=== PATIENT | female | born 1985 | race Two or more races ===

== ENCOUNTER 2016-12-30 13:27 | Emergency (ER) | payer MEDICAID ==
[~2016-12-30] VITALS: Ht 154.9 cm; Wt 86.2 kg
[~2016-12-30 13:27] MED LIST: ALBUTEROL2.5 MG/3 M INH; CEPHALEXIN500 MG ORAL; IBUPROFEN600 MG ORAL; TYLENOL650 MG/20. ORAL
--- NOTE | 2016-12-30 13:42 | Emergency Room Report ---
History of Present Illness General Chief Complaint: Upper Extremity Injury Source: Patient Present Illness HPI 31 YO Female presents to the ED c/o acute exacerbation of left arm pain, tenderness, and some swelling. pt. reports hx of left wrist pain but not of this character. denies open lesions. reports fall several months ago. pt. denies bruises. 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 pt. only pmhx is asthma. Denies increased temperature to palpation of the forearm. pt. denies weakness, she reports pain is exacerbated with movement or touch. Denies numbness tingling or loss of sensation or gross motor movements of the extremities, incontinence of bowel or bladder. Denies CP, Palpitations, LOC, AMS, dizziness, Changes in Vision, Sensation, paresthesias, or a sudden severe headache. Allergies: Coded Allergies: No Known Allergies (Unverified , 02/11/15) Patient History Past Medical History: see triage record Past Surgical History: none Pertinent Family History: none Last Menstrual Period: last mo Now: No Immunizations: UTD Reviewed Nursing Documentation: PMH: Agreed, PSxH: Agreed Nursing Documentation-PMH Past Medical History: No History, Except For Hx Asthma: Yes Review of Systems All Other Systems: negative except mentioned in HPI Physical Exam Vital Signs Date Time Temp Pulse Resp B/P (MAP) Pulse Ox O2 Delivery O2 Flow Rate FiO2 12/30/16 13:29 98.2 90 19 117/81 99 Sp02 EP Interpretation: reviewed, normal General Appearance: no apparent distress, alert, GCS 15, non-toxic Head: normocephalic, atraumatic Eyes: bilateral eye normal inspection, bilateral eye PERRL ENT: hearing grossly normal, normal voice Neck: full range of motion Respiratory: lungs clear, normal breath sounds, speaking full sentences Cardiovascular #1: regular rate, rhythm, normal capillary refill Cardiovascular #2: 2+ radial (R), 2+ radial (L) Rectal: deferred Musculoskeletal: back normal, gait/station normal, normal range of motion, tender - moderte TTP to the left wrist and forearm, no ttp to the elbow or distal fingers. pt. is NVI, no evidence of infection or obvious deformity Neurologic: alert, oriented x3, responsive, motor strength/tone normal, sensory intact, speech normal Psychiatric: judgement/insight normal, memory normal, mood/affect normal Skin: normal color, no rash, warm/dry, well hydrated Medical Decision Making PA Attestation Dr. Clemens is my supervising Physician whom patient management has been discussed with. Diagnostic Impression: Primary Impression: Wrist pain, acute Qualified Codes: M25.532 - Pain in left wrist ER Course 31 YO Female presents to the ED c/o acute exacerbation of left arm pain, tenderness, and some swelling. pt. reports hx of left wrist pain but not of this character. denies open lesions. reports fall several months ago. pt. denies bruises. 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 pt. only pmhx is asthma. Denies increased temperature to palpation of the forearm. pt. denies weakness, she reports pain is exacerbated with movement or touch. Denies numbness tingling or loss of sensation or gross motor movements of the extremities, incontinence of bowel or bladder. Denies CP, Palpitations, LOC, AMS, dizziness, Changes in Vision, Sensation, paresthesias, or a sudden severe headache. Ddx considered but are not limited to Fracture, dislocation, contusion, Sprain/ Strain/Spasm, myositis, tendonitis Vital signs: are WNL, pt. is afebrile H&PE are most consistent with musculoskeletal injury will perform imaging to r/ o fractures/dislocations. ORDERS: - X-ray Left Wrist 3 views - negative for fx, Dislocation, or significant soft tissue injury, per preliminary read in ED by Dr. Clemens - interpretation is scribed by PA. Official radiology report was also read as negative for acute fractures or dislocations. ED INTERVENTIONS: - Toradol IM - Volar wrist Splint applied to the left wrist by orthopedic technician. Pt. remains neurovascularly intact. DISCHARGE: At this time pt. is stable for d/c to home. Will provide printed patient care instructions, and any necessary prescriptions. Care plan and follow up instructions have been discussed with the patient prior to discharge. Last Vital Signs Date Time Temp Pulse Resp B/P (MAP) Pulse Ox O2 Delivery O2 Flow Rate FiO2 12/30/16 13:29 98.2 90 19 117/81 99 Disposition: HOME, SELF-CARE Condition: Stable Scripts Naproxen Sodium (NAPROXEN SODIUM) 550 Mg Tablet 550 MG ORAL TWICE A DAY, #20 TAB Prov: Connie Live 12/30/16 Patient Instructions: Wrist Pain Additional Instructions: Take medications as directed. Follow up with a Primary Care Provider in 3-5 days, even if your symptoms have resolved. --Please review list of primary care clinics, if you do not already have a primary care provider Return sooner to ED if new symptoms occur, or current symptoms become worse. Do not drink alcohol, drive, or operate heavy machinery while taking [ ] as this may cause drowsiness. - Please note that this Emergency Department Report was dictated using [employer] stretcher hand technology software, occasionally this can lead to erroneous entry secondary to interpretation by the dictation equipment. Connie Live Dec 30, 2016 13:42
[2016-12-30] MEDS ORDERED: Ketorolac 60mg Inj IM ONE (13:45)
[2016-12-30] MEDS ORDERED: NAPROXEN SODIU550 M1 ORAL (14:47)
[2016-12-30 15:06] VITALS: BP 124/82
--- NOTE | 2016-12-30 15:54 | Diagnostic Imaging Report ---
Clinical Indication:PAIN Technique: 3 views of the left wrist Comparison: None Findings: No acute fractures. No dislocations. Joint spaces are preserved. Impression: Negative
== END 2016-12-30 15:00 | disposition home or self-care (01) ==
LOC: EMR 13:42
DX: M25.532 Pain in left wrist (principal); J45.909 Unspecified asthma, uncomplicated
CPT/HCPCS: 96372; 99284